=== PATIENT | female | born 1960 | race Two or more races ===

== ENCOUNTER 2021-04-19 14:00 | Emergency (ER) | payer OTHER ==
--- OUTSIDE RECORDS SUMMARY | 2021-04-19 14:03 | XMS REPORT | Continuity of Care Document ---
:1960 Author Organization [facility] t Address [address] [place] [address] Care Team Providers Name Role Phone PCP, DOES NOT HAVE A Primary Care Physician Unavailable RADIOLOGY Attending Clinician Unavailable Radiology Attending Clinician Unavailable Doctor Unassigned, Name Attending Clinician Unavailable Jaydon PACHECO Admitting Clinician Unavailable Payers Payer Name Policy Type Policy Number Effective Date Expiration Date Corinne ANGELES O [id number] 2013 00:00:00 2020 00:00 :00 Problems Condition Condition Condition Status Onset Resolution Last Treating Co mments Source Name Details Category Date Date Treatment Clinician Date Hyperkalem Hyperkalem Disease Active U nivers ia ia 2-22 ity of 00:00: [place] 00 [facility] Prediabete Prediabete Disease Active U nivers s s -22 ity of 00:00: [place] 00 Medical Branch Obesity, Obesity, Disease Active Unive rs unspecifie unspecifie 04-22 [place] y of d [place] d [place] severity, severity, 00 [facility]cent unspecifie unspecifie Br anch d obesity d obesity type type Primary Primary Disease Active Univers hypothyroi hypothyroi 04-21 it y of dism dism 00:00: [place] 00 [facility] Allergies, Adverse Reactions, Alerts Allergy Allergy Status Severity Reaction(s) Onset Inactive Treating Comm ents Source Name Type Date Date Clinician NO KNOWN Drug Active Univers ALLERGIE Class ity of S [facility] Social History Social Habit Start Date Stop Date Quantity Comments Source Sex Assigned At [facility] Medical Branch Alcohol intake 2016-04-21 2016-04-21 [facility] 00:00:00 00:00:00 Medical Branch Smoking Status Start Date Stop Date Source Never smoker [facility] Branch Medications Ordered Filled Start Stop Current Ordering Indication Dosage Frequency Signature Comments Components Source Medication Medication Date Date Medication? Clinician (SIG) Name Name LEVOTHYROXI Yes [id number] TAKE 1 Univers [place] 137 mcg 2-16 TABLET BY ity of tablet 00:00: MOUTH [place] 00 EVERY Medical MORNING Branch LEVOTHYROXI Yes [id number] TAKE 1 Univers [place] 137 mcg 2-16 TABLET BY ity of tablet 00:00: MOUTH [place] 00 EVERY Medical MORNING Branch phentermine Yes [id number] 30mg Take 1 Univers 30 mg 5-31 capsule by ity of capsule 00:00: mouth [place] 00 every Medical morning. Branch phentermine Yes [id number] 30mg Take 1 Univers 30 mg 5-31 capsule by ity of capsule 00:00: mouth [place] 00 every Medical morning. Branch Procedures Procedure Date / Time Performed Performing Clinician Sour e US PELVIS COMPLETE 2019-04-28 15:50:23 Requisition, Paper [facility] NON-OB [facility] ASSIGNMENT OF BENEFITS 2019-04-28 14:54:54 Doctor Unassigned, No [facility] Name [facility] Encounters Start End Encounter Admission Attending Care Care Encounter Source Date/Time Date/Time Type Type Clinicians Facility Department ID 2019-04-28 2019-04-28 Outpatient R RADIOLOGY [facility] [id number] Univers 09:05:40 23:59:00 ity of [facility] 2019-04-28 2019-04-28 Hospital Radiology [facility] [id number] Univers 09:00:00 23:59:00 Encounter Brittni [id number] ity [facility] [id number] [facility] [id number] [facility] 806 Branch 2019-04-28 2019-04-28 Outpatient R RADIOLOGY [facility] [id number] Univers 09:00:00 09:00:00 [id number] ity of [facility] 2019-04-28 2019-04-28 Orders Doctor NUÑEZ [id number] Univers 00:00:00 00:00:00 Only Unassigned, WALLACE [id number] ity of [place] [facility] [id number] [place]ally [id number] Medi vincent 009 Branch Results Test Description Test Time Test Results Result Source Comments Comments US PELVIS 2019-04-02 * Limitations of a Unive rsity of COMPLETE NON-OB 8 transabdominal only [facility] 23:36:53 sonographic Branch examination. 1. ?Possible small posterior uterine body fibroid (1.8 cm). 2. ?Ovaries only questionably identified. No adnexal mass visualized.EXAM: US PELVIS COMPLETE NON-OB HISTORY: 59 year -old woman with pelvic and perineal pain. TECHNIQUE: Transabdominal ultrasound imaging of the pelvis was performedincluding color Doppler evaluation. [employer] images were obtained forthe record. COMPARISON: None FINDINGS: Uterus: Size: 5.8 cm x 2.5 cm x 4.370Myometrium: HomogenousMasses: Partially exophytic hypoechoic posterior uterine body roundedlesion, 1.8 cm, likely an exophytic fibroidEndometrium: Limited visualization of the endometrium on thistransabdominal only study. Where visualized measures approximately 3 mm inthickness. Both ovaries are only questionably identified. No adnexal mass. Cul-de-sac:No free fluid. [facility], Radiant Results Inft User - 04/28/2019 5:38 PM CSTEXAM: US PELVIS COMPLETE NON-OBHISTORY: 59 year -old woman with pelvic and perineal pain. TECHNIQUE: Transabdominal ultrasound imaging of the pelvis was performedincluding color Doppler evaluation. [employer] images were obtained forthe record.COMPARISON: NoneFINDINGS:Uterus: Size: 5.8 cm x 2.5 cm x 4.370Myometrium: HomogenousMasses: Partially exophytic hypoechoic posterior uterine body roundedlesion, 1.8 cm, likely an exophytic fibroidEndometrium: Limited visualization of the endometrium on thistransabdominal only study. Where visualized measures approximately 3 mm inthickness.Both ovaries are only questionably identified. No adnexal mass. Cul-de-sac:No free fluid.IMPRESSION* Limitations of a transabdominal only sonographic examination.1. Possible small posterior uterine body fibroid (1.8 cm).2. Ovaries only questionably identified. No adnexal mass visualized.
[2021-04-19] MEDS ORDERED: MORPHINE 4 MG/ML SYR ONE (14:17)
[2021-04-19] MEDS ORDERED: ONDANSETRON 4 MG/2 ML VIAL ONE (14:17)
[2021-04-19] MEDS ORDERED: propofoL 200 MG/20 ML VIAL IV ONE ×2 (15:17→15:41)
--- NOTE | 2021-04-19 15:34 | RAD REPORT ---
EXAM DESCRIPTION: RAD - Wrist Left 3 View - 04/19/2021 2:28 pm CLINICAL HISTORY: Pain;Deformity COMPARISON: No comparisons FINDINGS: Transverse fracture is present distal radius with 1 full shaft with dorsal dislocation. Th ere is approximately 1 centimeter of overlap of the fracture fragments. Ulna styloid is fractured and dislocated. Carpal bones maintain normal positioning to the dorsal dislocated distal fracture fragme nt. No acute carpal bone injury. IMPRESSION: Distal radius and ulna fracture dislocation as detailed.
[2021-04-19] MEDS ORDERED: FENTANYL CITR 100 MCG/2 ML ONE (15:41)
--- NOTE | 2021-04-19 16:48 | ER ---
Nurse's Notes [facility] Name: Amalia Emery Age: 61 yrs Sex: Female : 1960 Arrival Date: 04/19/2021 Time: 14:08 Bed 4 Private MD: Diagnosis: Displaced comminuted fracture of shaft of radius, left arm, initial encounter for closed fracture;Displaced fracture of left ulna styloid process, initial encounter for closed fracture Presentation: 04/19 14:08 Chief complaint: EMS states: She was running, tripped and fell, did not hit head, jl7 obvious deformity to left wrist, 22 G to right AC, 10 mg Toradol IVP given. Care prior to arrival: Splint applied. Medication(s) given: Normal saline infusion, 500 mL, 10 mg Toradol IVP IV initiated. 22 GA, in the right antecubital area. Mechanism of Injury: Fall from standing position. Trauma event details: Injury occurred in the [facility], Injury occurred: on a street or highway. Injury occurred: April 19, 2021 Injury occurred at: 13:30. 14:08 Acuity: ELYSIA 3 jl7 14:08 Method Of Arrival: EMS: [facility] jl7 14:11 Coronavirus screen: At this time, the client does not indicate any symptoms associated jl7 with coronavirus-19. Ebola Screen: No symptoms or risks identified at this time. Initial Sepsis Screen: Does the patient meet any 2 criteria? No. Patient's initial sepsis screen is negative. Does the patient have a suspected source of infection? No. Patient's initial sepsis screen is negative. Risk Assessment: Do you want to hurt yourself or someone else? Patient reports no desire to harm self or others. Onset of symptoms was April 19, 2021. Triage Assessment: 14:11 General: Appears in no apparent distress. uncomfortable, Behavior is calm, cooperative, jl7 appropriate for age. Pain: Complains of pain in left wrist. Trauma Activation: Not Applicable Physician: ED Physician; Name: ; Notified At: ; Arrived At: Physician: General Surgeon; Name: ; Notified At: ; Arrived At: Physician: Radiology; Name: ; Notified At: ; Arrived At: Physician: Respiratory; Name: ; Notified At: ; Arrived At: Physician: Lab; Name: ; Notified At: ; Arrived At: Historical: - Allergies: 14:11 No Known Allergies; jl7 - Home Meds: 14:11 Synthroid Oral [Active]; jl7 - PMHx: 14:11 Hypothyroidism; jl7 - Immunization history:: Client reports receiving the [place] \T\ Costa single-dose vaccine. - Social history:: Smoking status: Patient denies any tobacco usage or history of. - Immunization history: Last tetanus immunization: unknown. - Family history:: not pertinent. - Hospitalizations: : No recent hospitalization is reported. Screenin:02 Abuse screen: Denies threats or abuse. Nutritional screening: No deficits noted. jd3 Tuberculosis screening: No symptoms or risk factors identified. Fall Risk Fall in past 12 months (25 points). IV access (20 points). Ambulatory Aid- None/Bed Rest/Nurse Assist (0 pts). Gait- Normal/Bed Rest/Wheelchair (0 pts) Mental Status- Oriented to own ability (0 pts). Total Pedersen Fall Scale indicates High Risk Score (45 or more points). Fall prevention measures have been instituted. Side Rails Up X 2 Placed Close to Nursing Station Frequent Obs/Assessments Occuring Family Present and informed to notify staff if the need to leave the bedside. Primary Survey: 14:15 NO uncontrolled hemorrhage observed. A: The patient is alert. Airway: patent, No jd3 supplemental oxygen in use on arrival. Oral cavity: clear. Breathing/Chest: Respiratory pattern: regular, Respiratory effort: spontaneous, unlabored, Chest inspection: symmetrical rise and fall of the chest. Circulation: Cardiac rhythm: sinus rhythm Pulses: palpable right radial artery and left radial artery. Skin color: pink, Skin temperature: warm. Disability Alert. Exposure/Environment: All clothing and personal items were removed. Forensic evidence collection is not deemed to be indicated at this time. Items placed in patient belonging bag. There is no evidence of uncontrolled external bleeding. Obvious injury(ies) are noted at this time: deformity noted to left wrist A warming method has been applied: A warm blanket has been provided to the patient. 15:15 Reassessment Airway Airway Patent Oxygen No O2 Oral cavity Clear Trachea Midline jd3 Breathing/Chest Respiratory pattern Regular Respiratory effort Spontaneous Unlabored Chest inspection Symmetrical Circulation Pulses Palpable Color [place] Temperature Warm Disability Alert. Assessment: 14:22 General: Appears uncomfortable, Behavior is cooperative. Pain:. Neuro: Level of ke1 Consciousness is awake, alert, obeys commands, Oriented to person, place, time, situation. Musculoskeletal: Capillary refill < 3 seconds, Range of motion: limited in Left arm left wrist post fall. 16:28 Reassessment: Patient states feeling better. Patient states symptoms have improved. ke1 Vital Signs: 14:13 Weight 76.52 kg (M); jl7 15:14 BP 125 / 59; Pulse 64; Resp 18; Temp 98.5; Pulse Ox 98% on R/A; ke1 15:30 BP 104 / 55; Pulse 59; Resp 16; Pulse Ox 99% ; ke1 15:41 BP 109 / 57; Pulse 59; Resp 18; Pulse Ox 100% on 2 lpm NC; ke1 15:53 BP 110 / 56; Pulse 59; Resp 18; Pulse Ox 97% on 2 lpm NC; ke1 16:00 BP 107 / 66; Pulse 58; Resp 17; Pulse Ox 100% ; ke1 17:02 BP 117 / 68; Pulse 59; Resp 18 S; Pulse Ox 100% on R/A; jd3 [place] Coma Score: 17:02 Eye Response: spontaneous(4). Verbal Response: oriented(5). Motor Response: obeys jd3 commands(6). Total: 15. Trauma Score (Adult): 15:20 Eye Response: spontaneous(1); Verbal Response: oriented(1); Motor Response: obeys ke1 commands(2); Systolic BP: > 89 mm Hg(4); Respiratory Rate: 10 to 29 per min(4); Raul Score: 15; Trauma Score: 12 16:00 Eye Response: spontaneous(1); Verbal Response: oriented(1); Motor Response: obeys ke1 commands(2); Systolic BP: > 89 mm Hg(4); Respiratory Rate: 10 to 29 per min(4); Raul Score: 15; Trauma Score: 12 17:02 Eye Response: spontaneous(1); Verbal Response: oriented(1); Motor Response: obeys jd3 commands(2); Systolic BP: > 89 mm Hg(4); Respiratory Rate: 10 to 29 per min(4); Raul Score: 15; Trauma Score: 12 ED Course: 14:08 Patient arrived in ED. jl7 14:08 Jose M Snider MD is Attending Physician. rn 14:10 Alex Westbrook, JUDE is Primary Nurse. ke1 14:11 Triage completed. jl7 14:13 Arm band placed on right wrist. jl7 14:21 Maintain EMS IV. Dressing intact. Site clean \T\ dry. Gauge \T\ site: 18 G R AC. ke 1 14:28 XRAY Wrist LEFT 3 view In Process Unspecified. EDMS 16:40 XRAY Wrist LEFT 2 view In Process Unspecified. EDMS 16:48 Kwaku Schaffer MD is Referral Physician. rn 17:02 Patient has correct armband on for positive identification. Placed in gown. Bed in low jd3 position. Call light in reach. Side rails up X2. Adult w/ patient. laboratory monitor on. Pulse ox on. NIBP on. 17:02 Patient maintains SpO2 saturation greater than 95% on room air. jd3 17:02 Thermoregulation: warm blanket given to patient. jd3 17:07 reduction of left wrist. IV discontinued. ke1 Administered Medications: 14:20 Drug: morphine 4 mg Route: IVP; Site: right antecubital; ke1 14:45 Follow up: Response: Pain is unchanged, physician notified ke1 14:20 Drug: Zofran (Ondansetron) 4 mg Route: IVP; Site: right antecubital; ke1 14:45 Follow up: Response: No adverse reaction ke1 15:30 Drug: Propofol 220 mg Route: IVP; Site: right antecubital; ke1 15:50 Follow up: Response: Patient is sedated ke1 Intake: 15:20 PO: 0ml; IV: 30ml; Total: 30ml. ke1 Outcome: 16:48 Discharge ordered by . rn 17:03 Patient's length of stay in the Emergency Department was greater than 2 hours. waiting jd3 for results and ortho/reduction of broken bonesPatient's length of stay extended due to 17:08 Discharged to home ambulatory. ke1 17:08 Condition: stable 17:08 Discharge instructions given to patient. 17:09 Patient left the ED. ke1 Signatures: Dispatcher [employer] EDMS Jose M Snider MD MD rn Leal, Jahala, RN RN jl7 Jarett Almaguer RN RN jd3 Ebrottie, Kouassi, RN RN ke1 Corrections: (The following items were deleted from the chart) 14:12 14:11 Allergies: Aspirin; jl7 jl7 14:34 14:22 Musculoskeletal: Capillary refill < 3 seconds, Range of motion: limited in Left ke1 arm ke1
--- NOTE | 2021-04-19 16:48 | EDPHYS ---
Physician Documentation [facility] Name: Amalia Emery Age: 61 yrs Sex: Female : 1960 Arrival Date: 04/19/2021 Time: 14:08 Bed 4 Private MD: ED Physician Jose M Snider HPI: 04/19 14:41 This 61 yrs old Female presents to ER via EMS with complaints of Fall Injury, wrist rn injury. 14:41 Details of fall: The patient fell from an upright position. Onset: The symptoms/episode rn began/occurred just prior to arrival. Associated injuries: The patient sustained left wrist. Severity of symptoms: At their worst the symptoms were moderate, in the emergency department the symptoms are unchanged. The patient has not experienced similar symptoms in the past. The patient has not recently seen a physician. Pt tripped over dog leash, fell backward onto outstretched arm, + isolated left wrist pain and deformity. EMS denies open wounds. Report vacuum splint corrected some of deformity and not as angulated as before. . Historical: - Allergies: 14:11 No Known Allergies; jl7 - Home Meds: 14:11 Synthroid Oral [Active]; jl7 - PMHx: 14:11 Hypothyroidism; jl7 - Immunization history:: Client reports receiving the [place] \T\ [place] single-dose vaccine. - Social history:: Smoking status: Patient denies any tobacco usage or history of. - Immunization history: Last tetanus immunization: unknown. - Family history:: not pertinent. - Hospitalizations: : No recent hospitalization is reported. ROS: 14:41 Constitutional: Negative for fever, chills, and weight loss, Neck: Negative for injury, rn pain, and swelling, MS/Extremity: + injury and deformity to left wrist Skin: Negative for open wounds to wrist. Exam: 14:41 Constitutional: This is a well developed, well nourished patient who is awake, alert, rn appears uncomfortable and in pain Head/Face: Normocephalic, atraumatic. MS/ Extremity: Pulses equal, no cyanosis. Neurovascular intact. + tenderness left distal wrist with dorsal and medial angulation. Small ulceration over distal ulna, but not open wound, no sign of puncture, no bleeding. Vital Signs: 14:13 Weight 76.52 kg (M); jl7 15:14 BP 125 / 59; Pulse 64; Resp 18; Temp 98.5; Pulse Ox 98% on R/A; ke1 15:30 BP 104 / 55; Pulse 59; Resp 16; Pulse Ox 99% ; ke1 15:41 BP 109 / 57; Pulse 59; Resp 18; Pulse Ox 100% on 2 lpm NC; ke1 15:53 BP 110 / 56; Pulse 59; Resp 18; Pulse Ox 97% on 2 lpm NC; ke1 16:00 BP 107 / 66; Pulse 58; Resp 17; Pulse Ox 100% ; ke1 17:02 BP 117 / 68; Pulse 59; Resp 18 S; Pulse Ox 100% on R/A; jd3 Raul Coma Score: 17:02 Eye Response: spontaneous(4). Verbal Response: oriented(5). Motor Response: obeys jd3 commands(6). Total: 15. Trauma Score (Adult): 15:20 Eye Response: spontaneous(1); Verbal Response: oriented(1); Motor Response: obeys ke1 commands(2); Systolic BP: > 89 mm Hg(4); Respiratory Rate: 10 to 29 per min(4); Raul Score: 15; Trauma Score: 12 16:00 Eye Response: spontaneous(1); Verbal Response: oriented(1); Motor Response: obeys ke1 commands(2); Systolic BP: > 89 mm Hg(4); Respiratory Rate: 10 to 29 per min(4); [place] Score: 15; Trauma Score: 12 17:02 Eye Response: spontaneous(1); Verbal Response: oriented(1); Motor Response: obeys jd3 commands(2); Systolic BP: > 89 mm Hg(4); Respiratory Rate: 10 to 29 per min(4); Raul Score: 15; Trauma Score: 12 Procedures: 15:49 Splinting: Splint applied to left wrist using sugar tong plaster splint. applied by rn myself. post reduction film - reveals improved alignment, Examined by me, post splint application: neurovascular intact, 2+ distal pulses palpable, brisk capillary refill noted, Patient tolerated well. Reduction: of the left wrist, using traction, manipulation, re-creation of injury and traction, Immobilized with sugar tong plaster splint. Patient tolerated well. Post reduction film - reveals improved alignment. 16:22 Moderate sedation: Pre-procedure assessment: the patient has been NPO 5 hour(s) prior rn to arrival, ASA physical classification: I - healthy, no underlying organic disease, Airway assessment: able to hyperextend neck, able to maintain airway, can open mouth without difficulty, Monitoring during procedure: manager monitoring, continuous pulse oximetry, nurse at bedside at all times, Medications employed: propofol, Post-procedure assessment: the patient is mildly sedated, Respiratory status: even and unlabored, a reversal agent was not used. MDM: 14:08 Patient medically screened. rn 16:47 Differential diagnosis: contusion, fracture, sprain, strain. Data reviewed: vital rn signs, nurses notes, radiologic studies, plain films, and as a result, I will discharge patient. Counseling: I had a detailed discussion with the patient and/or guardian regarding: the historical points, exam findings, and any diagnostic results supporting the discharge/admit diagnosis, radiology results, the need for outpatient follow up, to return to the emergency department if symptoms worsen or persist or if there are any questions or concerns that arise at home. Response to treatment: the patient's symptoms have markedly improved after treatment, and as a result, I will discharge patient. Special discussion: I discussed with the patient/guardian in detail that at this point there is no indication for admission to the hospital. It is understood, however, that if the symptoms persist or worsen the patient needs to return immediately for re-evaluation. Based on the history and exam findings, there is no indication for further emergent testing or inpatient evaluation. I discussed with the patient/guardian the need to see the orthopedic surgeon for further evaluation of the symptoms. 04/19 14:08 Order name: XRAY Wrist LEFT 3 view; Complete Time: 16:58 rn 04/19 15:49 Order name: XRAY Wrist LEFT 2 view; Complete Time: 16:58 rn 04/19 14:09 Order name: NPO; Complete Time: 14:11 rn 04/19 14:09 Order name: IV Start; Complete Time: 14:21 rn 04/19 14:35 Order name: Moderate Sedation; Complete Time: 16:03 rn 04/19 16:22 Order name: Sling; Complete Time: 16:59 rn Administered Medications: 14:20 Drug: morphine 4 mg Route: IVP; Site: right antecubital; ke1 14:45 Follow up: Response: Pain is unchanged, physician notified ke1 14:20 Drug: Zofran (Ondansetron) 4 mg Route: IVP; Site: right antecubital; ke1 14:45 Follow up: Response: No adverse reaction ke1 15:30 Drug: Propofol 220 mg Route: IVP; Site: right antecubital; ke1 15:50 Follow up: Response: Patient is sedated ke1 Disposition Summary: 04/19/21 16:48 Discharge Ordered Location: Home rn Problem: new rn Symptoms: have improved rn Condition: Stable rn Diagnosis - Displaced comminuted fracture of shaft of radius, left arm, initial encounter for rn closed fracture - Displaced fracture of left ulna styloid process, initial encounter for closed rn fracture Followup: rn - With: - When: 1 week - Reason: Recheck today's complaints, Re-evaluation by your physician Discharge Instructions: - Discharge Summary Sheet rn - Cast or Splint Care, Adult rn - Radial Fracture rn - Ulnar Fracture rn Forms: - Medication Reconciliation Form rn - Thank You Letter rn - Antibiotic supervisor frame sample and pattern - Prescription Opioid Use rn Prescriptions: - Tylenol-Codeine #3 300 mg-30 mg Oral - take 1 tablet by ORAL route every 6-8 hours As needed; 15 tablet; Refills: 0, rn Product Selection Permitted Signatures: Dispatcher [employer] EDJose M Miller MD MD rn Leal, Jahala RN RN jl7 Jarett Almaguer RN RN Alex Lazo, RN RN ke1 Corrections: (The following items were deleted from the chart) 14:12 14:11 Allergies: Aspirin; nicholas jl7
--- NOTE | 2021-04-19 16:57 | RAD REPORT ---
EXAM DESCRIPTION: RAD - Wrist Left 2 View - 04/19/2021 4:41 pm FINDINGS: PA and lateral views of the wrist were obtained labeled post reduction. Fracture fragments have been reduced back to anatomic alignment and position.
[2021-04-19 17:46] VITALS: TEMP 98.5
[2021-04-19 17:52] VITALS: O2SAT 100
[2021-04-19 17:53] VITALS: BP 117/68
== END 2021-04-19 17:09 | disposition home or self-care (01) ==
LOC: ER 14:00
PROC: 0PSJXZZ Reposition Left Radius, External Approach (ICD-10-PCS; principal; 2021-04-19)
PROC: 0PSLXZZ Reposition Left Ulna, External Approach (ICD-10-PCS; 2021-04-19)
DX: S52.352A Displaced comminuted fracture of shaft of radius, left arm, initial encounter for closed fracture (principal); S52.612A Displaced fracture of left ulna styloid process, initial encounter for closed fracture; W01.0XXA Fall on same level from slipping, tripping and stumbling without subsequent striking against object, initial encounter; E03.9 Hypothyroidism, unspecified
CPT/HCPCS: 73110; 73100; 96375; 96374; 99285; 25605; J2704 ×2; J2405; J3010

== ENCOUNTER 2021-04-30 09:21 | Day surgery (SDC) | payer OTHER ==
[2021-04-29 13:21] LABS: Absolute Lymphocytes (CBC) 1.8 K/uL (0.7-4.9); Hematocrit 38.9 % (36.0-45.0); Lymphocytes % 31.9 % (15.3-44.8); RBC Red Blood Cell Count 4.14 M/uL (3.86-4.86)
[2021-04-29 13:24] LABS: Protime INR 0.91
[2021-04-29 13:32] LABS: Potassium 4.3 mmol/L (3.5-5.1)
--- NOTE | 2021-04-29 13:34 | RAD REPORT ---
EXAM DESCRIPTION: RAD - Chest Pa And Lat (2 Views) - 04/29/2021 1:12 pm CLINICAL HISTORY: Pre op, pending wrist surgery COMPARISON: None TECHNIQUE: Frontal and lateral views of the chest were obtained. FINDINGS: The lungs are clear. Heart size is normal and central vasculature is within normal limit s. No pleural effusion or pneumothorax seen. No acute bony finding noted. No aortic abnormality. IMPRESSION: No acute cardiopulmonary process.
[2021-04-30] MEDS ORDERED: Ringers Lactate 1,000 ML IV ONE ×2 (09:29→12:59)
[2021-04-30] MEDS ORDERED: CEFAZOLIN/SWI 2gm 2 GM/20 ML SYR ONE (09:29)
[2021-04-30] MEDS ORDERED: LIDOCAINE 1% MPF 5 ML VIAL ONE (09:30)
[2021-04-30] MEDS ORDERED: MIDAZOLAM HCL 2 MG/2 ML INJ ONE (09:31)
[2021-04-30] MEDS ORDERED: FENTANYL CITR 100 MCG/2 ML ONE (09:31)
[2021-04-30] MEDS ORDERED: LIDOCAINE 2% MPF 5 ML VIAL ONE (09:37)
[2021-04-30] MEDS ORDERED: propofoL 200 MG/20 ML VIAL IV ONE (09:37)
[2021-04-30] MEDS ORDERED: BUPIVACAINE 0.5% PF 10 ML VIAL ONE (10:44)
--- NOTE | 2021-04-30 11:09 | EKG ---
Test Date: 2021-04-29 Test Time: 12:54:24 Tool Marker: BERKLEY MEASUREMENT RESULTS: Intervals: Rate: 59 TX: 136 QRSD: 76 QT: 404 QTc: 399 [place]: P: 60 TX: 136 QRS: 76 T: 95 INTERPRETIVE STATEMENTS: Sinus bradycardia Otherwise normal ECG No previous ECG available for comparison Electronically Signed On 04-30-21 11:07:43 SET AND EXHIBIT DESIGNER by Sergio Dozier
[2021-04-30] MEDS ORDERED: EPHEDRINE SULF 50 MG/ML VIAL ONE (11:27)
[2021-04-30] MEDS ORDERED: KETOROLAC 30 MG/ML INJ ONE (12:09)
[2021-04-30] MEDS ORDERED: dexAMETHasone 10 MG/ML VIAL ONE (12:09)
[2021-04-30] MEDS ORDERED: ONDANSETRON 4 MG/2 ML VIAL ONE (12:10)
--- NOTE | 2021-04-30 12:27 | P.BOP ---
Preoperative diagnosis: left distal radius fracture Postoperative diagnosis: same Primary procedure: open reduction internal fixation left 3 part distal radius fracture Smt Technician: NONE,NONE Estimated blood loss: 5 cc Specimen: none Findings: see dictation Anesthesia: General Complications: None Implants: 3 hole narrow Acumed distal radius locking plate Fluids & blood products: per anesthesia record: TT: 59 mins @ 250 mmHg Transferred to: Recovery Room Condition: Good
--- NOTE | 2021-04-30 12:58 | RAD REPORT ---
EXAM DESCRIPTION: RAD - Fluoroscopy <1 Hour - 04/30/2021 12:52 pm CLINICAL HISTORY: ORIF LEFT WRIST COMPARISON: No comparisons FINDINGS: Nineteen fluoroscopic images submitted. Fluoroscopy time: 0.2 minutes.
--- NOTE | 2021-04-30 13:01 | RAD REPORT ---
EXAM DESCRIPTION: RAD - Wrist Left 2 View - 04/30/2021 12:55 pm CLINICAL HISTORY: S/P ORIF Pain COMPARISON: Wrist Left 2 View dated 04/19/2021; Wrist Left 3 View dated 04/19/2021 FINDINGS: Splint material is in place limiting bone detail. Distal radial hardware plate and multipl e screws have been placed reducing previously noted distal radius fracture. Ununited ulnar styloid fr acture again seen.
[2021-04-30 13:11] VITALS: O2SAT 98
[2021-04-30 14:18] VITALS: BP 143/68; TEMP 96.8
--- NOTE | 2021-05-01 03:33 | P.OP ---
Preoperative diagnosis: left 3 part distal radius fracture Postoperative diagnosis: same Primary procedure: open reduction internal fixation left 3 part distal radius fracture Anesthesia: general Estimated blood loss: 5 cc Specimen: none Findings: see dictation Operative Technique: Indication For Procedure: Amalia is a 61-year-old female who presented to my clinic with signs, symptoms and x-ray findings consistent with a displaced unstable distal radius fracture. I discussed with the patient at length risks and benefits associated with operative and nonoperative treatment. She expressed understanding and elected to proceed with operative treatment. Description Of Procedure: After informed consent was obtained, the patient was identified in the preoperative holding area. The left upper extremity was marked. The patient was then brought to PACU, where she underwent a left-sided interscalene block for postoperative anesthesia. She was then taken to the op erating room, transferred to the operating table in a supine fashion, placed under general LMA anesthesia. The left upper extremity was then prepped and draped in the usual sterile fashion. A time-out was initiated. The correct patient and procedure were confirmed and identified. The patient did receive her preoperative prophylactic antibiotic. The left upper extremity was then exsanguinated using an Esmarch and the tourniquet was inflated to 250 mmHg. Approximately, a 10 cm longitudinal incision was made over the FCR tendon consistent with a volar approach to the distal radius. FCR tendon sheath was noted. It was opened. FCR tendon was gently retracted radially. The floor of the tendon sheath was then opened using Metzenbaum. Blunt dissection was then taken down to the distal radius. The pronator quadratus was encountered, elevated off the distal radius using a 15 blade elevator. The fracture was identified. The fracture was then reduced using traction and manipulation and K-wire was then placed to hold temporary reduction of the fracture. Fluoroscopy was then used to ensure proper reduction was maintained. A 3-hole narrow Acumed distal radius locking plate was then placed on the distal radius. Proper positioning was then confirmed using fluoroscopy and was pinned into position. The 3.5 cortical shaft screw was placed to hold the reduced plate to the fracture to the proximal segment followed by placement of 5 distal locking screws using unicortical locking fixation. Two remaining proximal shaft screws were then placed using 3.5 cortical screws. Fluoroscopy was then used to ensure proper reduction and placement of the screws which was confirmed. Wound was then irrigated thoroughly with normal saline. Subcutaneous tissue was approximated using a 2-0 Vicryl. Skin was approximated using a 4-0 monocryl. Sterile dressings were applied. The patient was placed in a sugartong splint, awakened, and transferred to PACU in stable condition. Postoperative Plan: She will be nonweightbearing of the left upper extremity. She will follow up in clinic 2 weeks for wound check and suture removal. Complications: None Implants: 3 hole narrow Acumed distal radius locking plate Fluids & blood products: per anesthesia record Condition: Good
== END 2021-04-30 14:10 | disposition home or self-care (01) ==
LOC: OR 09:21
PROVIDERS: ATTEND Orthopaedic Surgery Sports Medicine
PROC: 0PSJ04Z Reposition Left Radius with Internal Fixation Device, Open Approach (ICD-10-PCS; principal; 2021-04-30 11:15)
DX: S52.572A Other intraarticular fracture of lower end of left radius, initial encounter for closed fracture (principal); M25.532 Pain in left wrist; Z20.822 Contact with and (suspected) exposure to COVID-19
CPT/HCPCS: 93005; 85025; 80048; 36415; 85610; 85730; 71046; 76000; 73100; 25608; U0003; J2704; J2250; J3010; J1100; J0690; J7120 ×2; J2405